=== PATIENT | male | born 1945 | race Two or more races ===

== ENCOUNTER 2018-03-07 13:45 | Outpatient (CLI) | payer OTHER | END 2018-03-07 13:59 | disposition home or self-care (01) | LOC: RAD 501 13:45 | DX: M25.562 Pain in left knee (principal) ==

== ENCOUNTER 2018-04-05 11:36 | Outpatient (CLI) | payer OTHER ==
[2018-04-05] MEDS ORDERED: ATACAND HCT 321 EAC1 PO (12:46)
[2018-04-05] MEDS ORDERED: METFORMIN HCL500 MG PO (12:46)
[2018-04-05] MEDS ORDERED: SULAR34 MG PO (12:47)
[2018-04-05] MEDS ORDERED: SYNTHROID112 MCG PO (12:47)
== END 2018-04-05 13:32 ==
LOC: LAB 11:36
DX: I49.8 Other specified cardiac arrhythmias (principal); M25.552 Pain in left hip; Z76.89 Persons encountering health services in other specified circumstances; E11.9 Type 2 diabetes mellitus without complications; I11.9 Hypertensive heart disease without heart failure; D50.0 Iron deficiency anemia secondary to blood loss (chronic); E03.8 Other specified hypothyroidism; N40.0 Benign prostatic hyperplasia without lower urinary tract symptoms; E29.1 Testicular hypofunction; N40.1 Benign prostatic hyperplasia with lower urinary tract symptoms; D64.89 Other specified anemias; E88.89 Other specified metabolic disorders; D68.8 Other specified coagulation defects; N39.0 Urinary tract infection, site not specified

== ENCOUNTER 2018-04-26 07:58 | Day surgery (SDC) | payer OTHER ==
[~2018-04-26 07:58] MED LIST: ATACAND HCT 321 EAC1 PO; METFORMIN HCL500 MG PO; PROSCAR PO; SINGULAIR10 MG PO; SPRIVIA; SULAR34 MG PO; SYMBICORT; SYNTHROID112 MCG PO; TAMS0.4C
== END 2018-04-26 16:35 | disposition home or self-care (01) ==
LOC: CIR.AMB 07:58
DX: M23.322 Other meniscus derangements, posterior horn of medial meniscus, left knee (principal); M12.262 Villonodular synovitis (pigmented), left knee; M17.12 Unilateral primary osteoarthritis, left knee; M22.42 Chondromalacia patellae, left knee

== ENCOUNTER 2020-06-27 09:14 | Emergency (ER) | payer OTHER ==
[~2020-06-27] VITALS: Ht 170.2 cm; Wt 87.1 kg
[2020-06-27] MEDS ORDERED: POTASSIUM CHLO10 MEQ PO (09:41)
[2020-06-27] MEDS ORDERED: NISOLDIPINE34 MG PO (09:41)
[2020-06-27] MEDS ORDERED: CANDESARTAN-HC1 EAC1 PO (09:41)
[2020-06-27] MEDS ORDERED: DULOXETINE HCL30 MG PO (09:41)
[2020-06-27] MEDS ORDERED: METFORMIN HCL500 M4 PO (09:43)
== END 2020-06-27 11:23 | disposition home or self-care (01) ==
LOC: ER 09:14
DX: E87.6 Hypokalemia (principal)

== ENCOUNTER 2020-06-28 06:00 | Day surgery (SDC) | payer OTHER ==
[~2020-06-28] VITALS: Ht 170.2 cm; Wt 86.2 kg
[~2020-06-28 06:00] MED LIST changes: +CANDESARTAN-HC1 EAC1 PO; +DULOXETINE HCL30 MG PO; +METFORMIN HCL500 M4 PO; +NISOLDIPINE34 MG PO; +POTASSIUM CHLO10 MEQ PO
== END 2020-06-28 10:15 | disposition home or self-care (01) ==
LOC: SURH 06:00 → CIR.AMB 06:00 → O/R 06:00 → SURH 07:00 → EDSTATUS 07:15 → CIR.AMB 10:15 → O/R 10:15
PROVIDERS: ATTEND Surgery
DX: D17.1 Benign lipomatous neoplasm of skin and subcutaneous tissue of trunk (principal); Z20.822 Contact with and (suspected) exposure to COVID-19

== ENCOUNTER 2021-06-01 02:13 | Emergency (ER) | payer OTHER ==
[~2021-06-01] VITALS: Ht 170.2 cm; Wt 74.8 kg
[2021-06-01] MEDS ORDERED: GARAMYCIN OPHT3.5 GM OP (05:00)
[2021-06-01] MEDS ORDERED: [UNRECOGNIZED DRUG - OTHER] OP (05:00)
== END 2021-06-01 05:07 ==
LOC: ER 02:13
DX: H57.12 Ocular pain, left eye (principal); I10 Essential (primary) hypertension; E11.9 Type 2 diabetes mellitus without complications; Z79.84 Long term (current) use of oral hypoglycemic drugs